=== PATIENT | male | born 1970 | race Two or more races ===

== ENCOUNTER 2025-07-20 17:58 | Inpatient (IN) | payer BC ==
[2025-07-20 18:23] VITALS: BMI 23.6
[2025-07-20] MEDS ORDERED: NALOXONE (NARCAN) HCL 4 MG/0.1 ML SPRAY NS PRN (19:13)
[2025-07-20] MEDS ORDERED: BENZOCAINE/MENTHOL (CHLORASEPTIC ) LOZENGE MM PRN (19:13)
[2025-07-20] MEDS ORDERED: LOPERAMIDE HCL 2 MG CAPSULE PO PRN (19:13)
[2025-07-20] MEDS ORDERED: MAG HYDROX/AL HYDROX/SIMETH 30 ML UNIT-DOSE CUP PO PRN (19:13)
[2025-07-20] MEDS ORDERED: BISMUTH SUBSALICYLATE 524 MG/30 ML PO PRN (19:13)
[2025-07-20] MEDS ORDERED: ACETAMINOPHEN 325 MG TABLET (FP) PO PRN (19:13)
[2025-07-20] MEDS ORDERED: IBUPROFEN 400 MG TABLET (FP) PO PRN (19:13)
[2025-07-20] MEDS ORDERED: hydrOXYzine PAMOATE 25 MG CAPSULE (FP) PO PRN (19:13)
[2025-07-20] MEDS ORDERED: DICYCLOMINE HCL 10 MG CAPSULE PO PRN (19:13)
[2025-07-20] MEDS ORDERED: ONDANSETRON *ODT* 4 MG TABLET SL PRN (19:13)
[2025-07-20] MEDS ORDERED: POLYETHYLENE GLYCOL (HEALTHYLAX) 3350 17 GM PACKET PO PRN (19:13)
[2025-07-20] MEDS ORDERED: MAGNESIUM HYDROX 2400MG/30ML ORAL SUSPENSION 30 ML CUP PO PRN (19:13)
[2025-07-20] MEDS: IBUPROFEN 600 MG TABLET (FP) PO PRN (20:24)
[2025-07-20] MEDS: THIAMINE 100 MG TABLET PO SCH (22:21)
[2025-07-20] MEDS: MELATONIN 5 MG TABLETS PO SCH (22:21)
[2025-07-20] MEDS: METHOCARBAMOL 500 MG TABLET PO PRN (22:22)
[2025-07-20] MEDS: guaiFENesin 600 MG TABLET.ER (FP) PO PRN (23:28)
[2025-07-21] MEDS: BENZONATATE 200 MG CAPSULE PO PRN (00:36)
[2025-07-21] MEDS: PRENATAL VITAMINS W/ FOLIC ACID TABLET (FP) PO SCH (10:42)
[2025-07-21 11:48] LABS: MCHC 32.1 g/dl (32.3-36.5); MEAN CELL VOLUME 91.7 fl (79.0-92.2); MEAN PLT VOLUME 10.3 fl (9.4-12.4); RDW 12.9 % (12.2-16.1)
[2025-07-21 12:06] LABS: GLUCOSE,RANDOM 138 mg/dL (74-106); TOT PROT 6.2 g/dl (6.4-8.2)
[2025-07-21 12:07] LABS: CO2 27 mmol/L (21-32)
[2025-07-21 12:09] LABS: ALK PHOS 65 U/L (40-150)
[2025-07-21 12:11] LABS: SGOT/AST 35 U/L (5-34); SGPT/ALT 21 U/L (0-55)
[2025-07-21 12:12] LABS: CREATININE 0.76 mg/dL (0.55-1.3)
[2025-07-23 06:21] VITALS: BP 113/62; PULSE 73; RESP 16; TEMP 97.6
== END 2025-07-23 12:14 | disposition home or self-care (01) | DRG 774 ==
LOC: YASAS 17:58 → Y3N 21:27
PROVIDERS: ADMIT Neuromusculoskeletal Medicine & OMM; ATTEND Counselor Addiction (Substance Use Disorder)
PROC: HZ2ZZZZ Detoxification Services for Substance Abuse Treatment (ICD-10-PCS; principal; 2025-07-20)
DX: F10.230 Alcohol dependence with withdrawal, uncomplicated (principal); R26.81 Unsteadiness on feet; G89.29 Other chronic pain; F14.20 Cocaine dependence, uncomplicated; F25.9 Schizoaffective disorder, unspecified; F12.920 Cannabis use, unspecified with intoxication, uncomplicated; Z59.01 Sheltered homelessness
CPT/HCPCS: 36415; 71045-TC-FY; 80053; 80307; 85027; 86780; 93005; 93010